=== PATIENT | male | born 1965 | race Caucasian/White ===

== ENCOUNTER 2018-03-31 06:32 | Emergency (ER) | payer SELFPAY ==
[~2018-03-31] VITALS: Ht 177.8 cm; Wt 105.0 kg
[2018-03-31] MEDS ORDERED: CEFTRIAXONE SODIUM 1 G/VIAL IV ONE (07:45)
[2018-03-31] MEDS ORDERED: LIDOCAINE HCL/PF 1% 2ML VIAL INFIL ONE (07:45)
[2018-03-31] MEDS ORDERED: KETOROLAC 30MG/ML VIAL IV ONE (07:45)
[2018-03-31] MEDS ORDERED: TETANUS, DIPHTHERIA, PERTUSSIS VAC/PF 0.5ML (>7YR OLD) IM ONE (07:45)
[2018-03-31] MEDS ORDERED: LIDOCAINE HCL/EPINEPHRINE 1%-EPI 1:100,000 20 ML VIAL INFIL ONE (07:45)
[2018-03-31] MEDS ORDERED: CEFTRIAXONE 1 G PREMIX 50 ML IV ONE (08:15)
[2018-03-31 10:15] VITALS: BP 115/82
== END 2018-03-31 10:30 | disposition home or self-care (01) ==
LOC: ER 06:32
DX: L03.116 Cellulitis of left lower limb (principal); L02.416 Cutaneous abscess of left lower limb; F12.10 Cannabis abuse, uncomplicated; Z87.891 Personal history of nicotine dependence
CPT/HCPCS: 87070; 87077; 87205; 90471; 90715; 96365; 96375; 99284; J0696; J1885; J3490; Z7610

== ENCOUNTER 2018-04-01 08:29 | Emergency (ER) | payer SELFPAY ==
[~2018-04-01] VITALS: Ht 172.7 cm; Wt 104.0 kg
[2018-04-01 09:56] VITALS: BP 122/84
[2018-04-01] MEDS ORDERED: HYDROCODONE/ACETAMINOPHEN 5/325MG TABLET PO ONE (10:00)
== END 2018-04-01 10:01 | disposition home or self-care (01) ==
LOC: ER 08:29
DX: J06.9 Acute upper respiratory infection, unspecified (principal); Z87.891 Personal history of nicotine dependence; F12.10 Cannabis abuse, uncomplicated
CPT/HCPCS: 99283